=== PATIENT | female | born 1995 | race Caucasian/White ===

== ENCOUNTER 2022-12-19 09:23 | Day surgery (SDC) | payer OTHER, SELFPAY ==
--- NOTE | 2022-12-19 | PATH_ITS ---
[facility] Accession Number: [id number] No. of containers..01 Tissue . 01 Material submitted: . colon - RANDOM COLON BIOPSIES . 01 Diagnosis: Random Colon, Biopsies: Colonic mucosa with no diagnostic abnormality. Negative for active, chronic, and microscopic colitis. Negative for dysplasia and malignancy. . MRV 12/23/2022 1401 Local . 01 Electronically signed: . Berny Ramos MD, PhD, Pathologist NPI- [id number] . 01 Gross description: . The specimen is received in formalin labeled with the patient's name, , and random colon biopsies, and consists of two fang soft tissue fragments ranging from 0.2 cm to 0.4 cm in greatest dimension. The specimen is filtered and submitted in cassette A1. ([id number]) /[facility] 12/22/20222 Local . 01 Pathologist provided ICD-10: R19.7 . 01 CPT . 149200 Specimen Comment: A courtesy copy of this report has been sent to [phone] Performed at: 01 [facility] [address] [place] [address], [place], [place] [id number] MD Pancho Clemens MD Phone: [phone]
[2022-12-19 09:37] VITALS: BMI 18.8
[2022-12-19 09:43] VITALS: BP 122/85; PULSE 85; RESP 12; TEMP 37.4; O2SAT 100
[2022-12-19] MEDS: LACTATED RINGERS 1,000 ML 42 ML IV (09:51)
--- NOTE | 2022-12-19 10:07 | PM.HP.1 ---
History of Present Illness History of Present Illness Date Patient Seen: 12/19/22 Time Patient Seen: 10:08 Chief complaint: Colonoscopy Narrative: I reviewed my recent office note. No significant changes. She is not worse after having reintroduced gluten. PFSH Surgical History Hx of esophagogastroduodenoscopy Social History Smoking Status: Never smoker alcohol intake: never Meds Home Medications and Allergies Home Medications Medication Instructions Recorded Confirmed Type drospirenone 3 mg-ethinyl 1 tab PO DAILY 12/19/22 12/19/22 History estradiol 0.02 mg tablet (JOIE (28)) Allergies Allergy/AdvReac Type Severity Reaction Status Date / Time No Known Drug Allergies Allergy Verified 12/19/22 09:32 Review of Systems Review of Systems ROS: Yes All systems reviewed with the patient and are negative except as otherwise documented Exam Vital Signs (past 8 hours): - 12/19/22 09:43 Temperature 99.3 F Pulse Rate 85 Respiratory Rate 12 Blood Pressure 122/85 Pulse Oximetry 100 Const General: cooperative HENMT Head: normal to inspection Eyes General: appearance normal, both eyes and all related structures Neck Neck: normal visual inspection Chest Chest: normal inspection of the chest Resp Effort & Inspection: normal respiratory effort Cardio Rate: regular rate GI Inspection: normal to inspection Skin General: no rashes or lesions noted Neuro General: patient alert and patient awake Extrem General: normal to inspection and no pedal edema Psych Appearance: grossly normal Assessment & Plan Assessment & Plan narrative: 27-year-old female with chronic diarrhea nausea and abdominal pain. Colonoscopy is pursued today to exclude inflammatory bowel disease.
--- NOTE | 2022-12-19 10:09 | PM.PREOP ---
Pre-operative Note Interval Note History & Physical reviewed/Exam performed by Physician: Yes Changes to H&P: No ASA Class (for procedural sedation): I
--- NOTE | 2022-12-19 11:11 | PM.OP.COLON ---
Operative Date/Time/Diagnoses Date of procedure: 12/19/22 Time of procedure: 11:11 Pre-op diagnosis: Diarrhea nausea abdominal pain Post-op diagnosis: same Procedure & Clinicians Study performed: Colonoscopy with biopsies Same procedure as scheduled: Yes Indications: Diarrhea abdominal pain nausea Surgeon: Joe Will Procedure Notes SCOAP/Timeout: Done Procedure in detail: After the risks and benefits were explained, written and verbal informed consent was obtained. The patient was brought into the procedure room and placed into the left lateral decubitus position. Please see anesthesia notes for sedation details. Digital rectal examination was accomplished. The scope was introduced into the patient and advanced under direct visualization to the cecum as identified by the appendiceal orifice and ileocecal valve. The scope was slowly withdrawn to carefully examine the mucosa for any defects or lesions. Comprehensive imaging was accomplished throughout the rectum including the dentate line. The colon was decompressed, the scope was then removed from the patient who tolerated the procedure well. Pediatric colonoscope Bowel prep adequate Scope withdrawal time: 11 minutes Sedation minutes: 13 Complications: none Impression: There was no evidence of any proctitis nor colitis throughout. No polyps or mass lesions. Slightly tortuous sigmoid colon. Random colon biopsies were taken for exclusion of microscopic colitis. The terminal ileum was interrogated and appeared visually normal. Endoscopic diagnosis Visually normal colonoscopy and terminal ileoscopy Post-procedure Plan for aftercare: 1. Await histopathology 2. Initiate once daily fiber supplementation with [id number] Konsyl. 3. Follow up GI clinic Disposition: PACU
[2022-12-19 11:15] VITALS: BP 110/76; PULSE 69; RESP 16; TEMP 36.2; O2SAT 99
[2022-12-19 11:20] VITALS: BP 110/76; PULSE 72; RESP 16; O2SAT 98
[2022-12-19 11:25] VITALS: BP 112/70; PULSE 76; RESP 16; O2SAT 98
[2022-12-19 11:32] VITALS: BP 111/75; PULSE 78; RESP 16; TEMP 36.8
== END 2022-12-19 11:44 | disposition home or self-care (01) ==
PROVIDERS: PCP Physician Assistant; Referring Provider Internal Medicine Gastroenterology; Visit Provider Internal Medicine Gastroenterology
PROC: 0DJD8ZZ Inspection of Lower Intestinal Tract, Via Natural or Artificial Opening Endoscopic (ICD-10-PCS; CPT 45378; principal; 2022-12-19 10:30)
DX: R10.9 Unspecified abdominal pain (principal); R19.7 Diarrhea, unspecified; R11.0 Nausea
CPT/HCPCS: 45380; 81025; J2704